=== PATIENT | female | born 1985 | race Caucasian/White ===

== ENCOUNTER 2016-07-13 15:29 | Emergency (ER) | payer OTHER ==
[2016-07-13] MEDS ORDERED: OLANZAPINE 5 MG TABLET ONE (16:33)
[2016-07-13 16:47] LABS: BASO % 0.4 % (0.2-1.0); EOS # 0.1 (0.0-0.5); EOS % 0.9 % (0.9-2.9); HEMATOCRIT 41.2 % (37.0-47.0); HEMOGLOBIN 14.5 gm/l (12.0-16.0); IMM NEUT% 0.1 % (0-1); LYMPH # 2.9 (1.0-4.8); LYMPH % 33.4 % (15-45); MEAN CELL VOLUME 89.2 fl (81.0-99.0); MEAN CORPUSCULAR HEMOGLOBIN 31.4 pg (27.0-31.0); MEAN CORPUSCULAR HGB CONC 35.2 g/dl (33.0-37.0); MEAN PLATELET VOLUME 10.8 fl (7.4-10.4); MONO # 0.6 (0.0-0.8); NEUT % 58.2 % (43-75); PLATELET COUNT 213 K/mm3 (130-400); RED CELL DISTRIBUTION WIDTH 11.9 % (11.5-14.5)
[2016-07-13 17:03] LABS: VENOUS BLOOD GAS BASE EXCESS -4.2 mmol/L (-2.0-2.0); VENOUS BLOOD GAS HCO3 18.5 mmol/L (22.0-27.0)
[2016-07-13 17:19] LABS: ALB/GLOB RATIO 1.7 (>1.0); ALBUMIN 4.7 gm/dL (3.5-5.7); ALT/SGPT 19 U/L (7-52); BLOOD UREA NITROGEN 17 mg/dL (7-25); BUN/CREATININE RATIO 24 (6-20); CALCIUM 9.5 mg/dL (8.6-10.3); GLOMERULAR FILTRATION RATE 98 mL/min (60-107)
[2016-07-13 17:24] LABS: URINE APPEARANCE SL CLOUDY; URINE BILIRUBIN NEGATIVE (NEGATIVE); URINE BLOOD 4+ (NEGATIVE); URINE COLOR YELLOW; URINE GLUCOSE (UA) NEGATIVE (NEGATIVE); URINE LEUKOCYTE ESTERASE 2+ (NEGATIVE); URINE NITRITE NEGATIVE (NEGATIVE); URINE PROTEIN 1+ (NEGATIVE); URINE UROBILINOGEN 1 mg/dL (0-1 mg/dl)
[2016-07-13 17:26] LABS: ACETAMINOPHEN < 10 ug/ml; SALICYLATE < 4 mg/dl (0-30)
[2016-07-13 17:33] LABS: URINE EPITHELIAL CELLS FEW /hpf; URINE RBC 0-2 /hpf; URINE WBC 25-30 /hpf
[2016-07-13 17:34] LABS: URINE BACTERIA FEW BACILLI
[2016-07-13 17:38] LABS: AMPHETAMINES/METHAMPHETAMINES POSITIVE (NEGATIVE); COCAINE NEGATIVE (NEGATIVE); MARIJUANA NEGATIVE (NEGATIVE); METHADONE NEGATIVE (NEGATIVE); OPIATES NEGATIVE (NEGATIVE); TRICYCLIC ANTIDEPRESSANTS NEGATIVE (NEGATIVE)
[2016-07-13] MEDS ORDERED: ACETAMINOPHEN 325 MG TABLET ONE (21:14)
[2016-07-14] MEDS ORDERED: OLANZAPINE 5 MG TABLET ONE (07:29)
[2016-07-14] MEDS ORDERED: NICOTINE 14 MG PATCH 1 EACH TD ONE (12:45)
[2016-07-14] MEDS ORDERED: NICOTINE 14 MG PATCH 1 EACH TD SCH (12:45)
[2016-07-14] MEDS ORDERED: ACETAMINOPHEN 325 MG TABLET ONE (12:50)
== END 2016-07-14 15:49 | disposition home or self-care (01) ==
LOC: ED 15:29
DX: F29 Unspecified psychosis not due to a substance or known physiological condition (principal); R45.851 Suicidal ideations; R45.850 Homicidal ideations
CPT/HCPCS: 80307 ×2; 84703; 82803; 85025; 87086; 80305; 80053; 81001; 99284 ×2; 36415; 93005; A9270 ×5

== ENCOUNTER 2016-07-20 10:33 | Emergency (ER) | payer OTHER ==
[2016-07-20] MEDS ORDERED: IOPAMIDOL 300 (61%) 100 ML VIAL IV ONE (10:34)
[2016-07-20] MEDS ORDERED: PROMETHAZINE HCL 25 MG/ML VIAL ONE (11:31)
[2016-07-20] MEDS ORDERED: ONDANSETRON 4 MG/2ML 2 ML VIAL ONE (11:31)
[2016-07-20] MEDS ORDERED: LACTATED RINGERS 1,000 ML ONE ×3 (11:32→15:51)
[2016-07-20 11:54] LABS: ABSOLUTE NEUTROPHIL COUNT 10.7 K/mm3 (1.8-7.7); BASO % 0.1 % (0.2-1.0); EOS % 0.1 % (0.9-2.9); HEMATOCRIT 45.9 % (37.0-47.0); HEMOGLOBIN 15.7 gm/l (12.0-16.0); IMM NEUT% 0.3 % (0-1); LYMPH % 14.7 % (15-45); MEAN CELL VOLUME 91.6 fl (81.0-99.0); MEAN CORPUSCULAR HEMOGLOBIN 31.3 pg (27.0-31.0); MEAN CORPUSCULAR HGB CONC 34.2 g/dl (33.0-37.0); MONO # 0.8 (0.0-0.8); MONO % 5.8 % (4-12); PLATELET COUNT 221 K/mm3 (130-400); RED CELL DISTRIBUTION WIDTH 11.9 % (11.5-14.5)
[2016-07-20 12:31] LABS: ALB/GLOB RATIO 1.7 (>1.0); ALBUMIN 4.8 gm/dL (3.5-5.7); CALCIUM 9.8 mg/dL (8.6-10.3)
[2016-07-20] MEDS ORDERED: METOCLOPRAMIDE HCL 5 MG/ML 2ML VIAL ONE (13:36)
[2016-07-20] MEDS ORDERED: DIPHENHYDRAMINE HCL 50 MG/1 ML VIAL ONE (13:36)
[2016-07-20 14:53] LABS: SPECIFIC GRAVITY 1.015 (1.001-1.030); URINE BILIRUBIN NEGATIVE (NEGATIVE); URINE BLOOD 4+ (NEGATIVE); URINE GLUCOSE (UA) NEGATIVE (NEGATIVE); URINE LEUKOCYTE ESTERASE TRACE (NEGATIVE); URINE NITRITE NEGATIVE (NEGATIVE); URINE PROTEIN NEGATIVE (NEGATIVE); URINE UROBILINOGEN NORMAL (0-1 mg/dl)
[2016-07-20 14:55] LABS: URINE APPEARANCE TURBID; URINE COLOR DARK YELLOW
[2016-07-20 14:58] LABS: URINE MUCUS 1+; URINE RBC 30-40 /hpf
[2016-07-20 14:59] LABS: URINE BACTERIA 1+
[2016-07-20] MEDS ORDERED: DEXAMETHASONE SOD PHOS 10 MG/1 ML VIAL ONE (15:50)
[2016-07-20] MEDS ORDERED: FAMOTIDINE 10 MG/ML 2ML VIAL ONE (15:53)
[2016-07-20] MEDS ORDERED: LORAZEPAM 2 MG/ML 1ML SDV ONE (15:53)
--- NOTE | 2016-07-20 16:50 | CT ---
ABD/PELVIS W/ CON COMPARISON: None. HISTORY: 31-year-old female with vomiting and epigastric pain for one day. Technique: No oral contrast. Intravenous injection 100 mL Isovue 300. Using a [employer] Aquilion [address] scanner, images were obtained from the diaphragm to the floor the pelvis. An automated dose reduction technique was used to minimize patient radiation dose. Dose information: CTDIvol (mGy): 9.30 DLP(mGycm): 456.50 FINDINGS: Lung bases: Normal. Inferior mediastinum and heart: Normal. Liver: Normal. Gallbladder: Removed. Bile ducts: Normal. Pancreas: Normal. Spleen: Normal. Adrenal glands: Normal. Kidneys: Normal. Ureters: Normal Urinary bladder: Normal. Uterus and adnexa: Normal position of intrauterine device. No adnexal mass or free fluid. Blood vessels: Normal Lymph nodes: Normal Stomach: Normal Duodenum: Normal Small intestine: Normal Appendix: Normal Colon: Normal Abdominal wall and supporting musculature: Normal Bones: Normal IMPRESSION: 1. No acute finding. 2. Incidentally noted cholecystectomy and intrauterine device. Report was sent to the emergency department electronic medical record system, 07/20/2016 at 16:51
[2016-07-20] MEDS ORDERED: DIAZEPAM 5 MG TABLET ONE (18:35)
== END 2016-07-20 18:44 | disposition home or self-care (01) ==
LOC: ED 10:33
DX: R11.2 Nausea with vomiting, unspecified (principal); F17.210 Nicotine dependence, cigarettes, uncomplicated
CPT/HCPCS: 83690; 84703; 85025; 87086; 80053; 81001; 74177; 96375 ×5; 99284 ×2; 96374; 96361 ×2; J2060; J1200; J1100; J2550; J2765; A9270; J2405; J7120 ×3; Q9967

== ENCOUNTER 2016-07-21 17:55 | Emergency (ER) | payer OTHER ==
[2016-07-21 18:54] LABS: BASO % 0.1 % (0.2-1.0); EOS % 0.2 % (0.9-2.9); HEMATOCRIT 44.5 % (37.0-47.0); HEMOGLOBIN 15.2 gm/l (12.0-16.0); IMM NEUT% 0.2 % (0-1); LYMPH # 2.1 (1.0-4.8); LYMPH % 23.2 % (15-45); MEAN CORPUSCULAR HEMOGLOBIN 31.1 pg (27.0-31.0); MEAN CORPUSCULAR HGB CONC 34.2 g/dl (33.0-37.0); MEAN PLATELET VOLUME 10.6 fl (7.4-10.4); MONO # 0.8 (0.0-0.8); MONO % 8.7 % (4-12); NEUT % 67.6 % (43-75); PLATELET COUNT 218 K/mm3 (130-400); RED CELL DISTRIBUTION WIDTH 11.8 % (11.5-14.5)
[2016-07-21] MEDS ORDERED: PANTOPRAZOLE SODIUM 40 MG VIAL IV ONE (18:58)
[2016-07-21] MEDS ORDERED: LACTATED RINGERS 1,000 ML ONE (18:58)
[2016-07-21] MEDS ORDERED: HALOPERIDOL LACTATE 5 MG/1 ML AMP ONE (18:58)
[2016-07-21 19:08] LABS: ALB/GLOB RATIO 1.8 (>1.0); ALBUMIN 4.6 gm/dL (3.5-5.7); CALCIUM 9.8 mg/dL (8.6-10.3)
== END 2016-07-21 20:57 | disposition home or self-care (01) ==
LOC: ED 17:55
DX: R11.2 Nausea with vomiting, unspecified (principal); R10.9 Unspecified abdominal pain; F12.988 Cannabis use, unspecified with other cannabis-induced disorder; F17.210 Nicotine dependence, cigarettes, uncomplicated
CPT/HCPCS: 83690; 82150; 85025; 80053; 83735; 96375; 99283 ×2; 96374; J1630; C9113; J7120